=== PATIENT | female | born 1995 | race Caucasian/White ===

== ENCOUNTER 2018-12-31 05:29 | Emergency (ER) | payer OTHER ==
[~2018-12-31] VITALS: Ht 170.2 cm; Wt 74.6 kg
[2018-12-31 05:30] VITALS: BP 135/69
[2018-12-31] MEDS ORDERED: PHEN10TA3 PO (05:39)
[2018-12-31] MEDS ORDERED: IBUP1TAB7 PO (05:39)
[2018-12-31] MEDS ORDERED: DEBR6.5S4 OTIC (05:39)
[2018-12-31] MEDS ORDERED: FLON1SPR NARES (06:06)
== END 2018-12-31 06:15 | disposition home or self-care (01) ==
LOC: M ED 05:29
DX: H65.91 Unspecified nonsuppurative otitis media, right ear (principal); J00 Acute nasopharyngitis [common cold]; F17.200 Nicotine dependence, unspecified, uncomplicated; Z91.048 Other nonmedicinal substance allergy status; Z79.899 Other long term (current) drug therapy

== ENCOUNTER → 2022-03-05 | Outpatient (REF) | payer OTHER ==
[~2022-03-05] MED LIST: DEBR6.5S4 OTIC; FLON1SPR NARES; IBUP1TAB7 PO; PHEN10TA3 PO
[2022-03-05 22:50] LABS: AMORPHOUS SEDIMENT SMALL (NEGATIVE); APPEARANCE, URINE CLOUDY (CLEAR); BACTERIA, URINE AUTO NEGATIVE (NEGATIVE); BILIRUBIN, URINE AUTO NEGATIVE (NEGATIVE); BLOOD, URINE BLOOD NEGATIVE (NEGATIVE); COLOR, URINE YELLOW (YELLOW); GLUCOSE, URINE (UA) AUTO NEGATIVE (NEGATIVE); KETONE, URINE AUTO NEGATIVE (NEGATIVE); LEUKOCYTE ESTERASE, URINE AUTO NEGATIVE (NEGATIVE); MUCUS, URINE SMALL (NEGATIVE); NITRITE, URINE AUTO NEGATIVE (NEGATIVE); PROTEIN, URINE AUTO NEGATIVE (NEGATIVE); RBC, URINE AUTO 0 /HPF (0-3); SPECIFIC GRAVITY URINE AUTO 1.012 (1.002-1.035); SQUAMOUS EPITHELIAL CELL UR AU 3 /HPF (0-6); UROBILINOGEN, URINE AUTO 0.2 mg/dL (0.0-2.0); WBC, URINE AUTO 1 /HPF (0-3)
[2022-03-05 23:59] LABS: GC DNA AMPLIFICATION NEGATIVE (NEGATIVE)
== END ==
LOC: M LAB REF 21:56
PROVIDERS: ATTEND Physician Assistant
DX: N89.8 Other specified noninflammatory disorders of vagina (principal); A59.01 Trichomonal vulvovaginitis; R39.9 Unspecified symptoms and signs involving the genitourinary system

== ENCOUNTER → 2022-05-11 | Outpatient (REF) | payer OTHER | LOC: M SFHCWAGY 13:19 | PROVIDERS: ATTEND Specialist | DX: O23.43 Unspecified infection of urinary tract in pregnancy, third trimester (principal); Z3A.00 Weeks of gestation of pregnancy not specified ==

== ENCOUNTER 2022-05-26 15:33 | Emergency (ER) | payer OTHER ==
[~2022-05-26] VITALS: Ht 167.6 cm; Wt 81.8 kg
[2022-05-26] MEDS ORDERED: PRENTAB53 PO (15:44)
[2022-05-26] MEDS ORDERED: CLON-412 (15:44)
[2022-05-26] MEDS ORDERED: FLUO10CA18 (15:44)
[2022-05-26] MEDS ORDERED: PROM12.528 (15:44)
[2022-05-26] MEDS ORDERED: NYST-13 (15:44)
[2022-05-26 17:14] LABS: HEMATOCRIT 35.9 % (36.0-47.0); MEAN CORPUSCULAR HEMOGLOBIN 30.5 pg (27.0-33.0); MEAN CORPUSCULAR HGB CONC 33.4 g/dl (32.0-36.5); MEAN CORPUSCULAR VOLUME 91.3 fl (80.0-96.0); PLATELET COUNT, AUTOMATED 288 10^3/uL (150-450); RED BLOOD COUNT 3.93 10^6/uL (4.00-5.40); WHITE BLOOD COUNT 8.6 10^3/uL (4.0-10.0)
[2022-05-26 18:11] LABS: ACETAMINOPHEN LEVEL < 2.0 UG/ML (10.0-30.0); ALBUMIN 2.5 GM/DL (3.2-5.2); ALT/SGPT 42 U/L (12-78); BILIRUBIN,DIRECT 0.2 MG/DL (0.0-0.2); BILIRUBIN,TOTAL 0.4 MG/DL (0.2-1.0); BLOOD UREA NITROGEN 4 MG/DL (7-18); CALCIUM LEVEL 9.3 MG/DL (8.5-10.1); CARBON DIOXIDE LEVEL 22 MEQ/L (21-32); CHLORIDE LEVEL 106 MEQ/L (98-107); CREATININE FOR GFR 0.42 MG/DL (0.55-1.30); ETHYL ALCOHOL (ETHANOL) 0.004 % (0.000-0.010); GLOMERULAR FILTRATION RATE > 60.0 (>60); GLUCOSE, FASTING 75 MG/DL (70-100); POTASSIUM SERUM 3.9 MEQ/L (3.5-5.1); SALICYLATE LEVEL < 1.7 MG/DL (5.0-30.0); SODIUM LEVEL 135 MEQ/L (136-145); TOTAL PROTEIN 6.5 GM/DL (6.4-8.2)
[2022-05-26] MEDS ORDERED: ANUSOL HC 25MG SUPP PR STA (19:08)
[2022-05-26 19:09] LABS: AMPHETAMINES LEVEL URINE NEGATIVE (NEGATIVE); BARBITURATES URINE NEGATIVE (NEGATIVE); BENZODIAZEPINES URINE NEGATIVE (NEGATIVE); CANNABINOIDS URINE NEGATIVE (NEGATIVE); COCAINE METABOLITE URINE NEGATIVE (NEGATIVE); METHADONE URINE NEGATIVE (NEGATIVE); OPIATES URINE NEGATIVE (NEGATIVE); PHENCYCLIDINE URINE NEGATIVE (NEGATIVE)
[2022-05-26] MEDS ORDERED: ONDANSETRON 4MG ORAL DISINTEGRATING TAB PO ONE (19:10)
[2022-05-26 20:01] VITALS: BP 137/75
[2022-05-26] MEDS ORDERED: ANUS2.5C2 PR (20:37)
== END 2022-05-27 00:53 | disposition home or self-care (01) ==
LOC: M ED 15:33
DX: O21.9 Vomiting of pregnancy, unspecified (principal); O22.43 Hemorrhoids in pregnancy, third trimester; O99.713 Diseases of the skin and subcutaneous tissue complicating pregnancy, third trimester; R21 Rash and other nonspecific skin eruption; Z79.899 Other long term (current) drug therapy; Z3A.34 34 weeks gestation of pregnancy

== ENCOUNTER → 2022-05-27 | Outpatient (CLI) | payer OTHER ==
[~2022-05-27] MED LIST changes: +ANUS2.5C2 PR; +CLON-412; +FLUO10CA18; +NYST-13; +PRENTAB53 PO; +PROM12.528
[2022-05-27 15:57] LABS: HEMATOCRIT 36.4 % (36.0-47.0); HEMOGLOBIN 11.9 g/dl (12.0-15.5); MEAN CORPUSCULAR HEMOGLOBIN 29.8 pg (27.0-33.0); MEAN CORPUSCULAR HGB CONC 32.7 g/dl (32.0-36.5); MEAN CORPUSCULAR VOLUME 91.2 fl (80.0-96.0); PLATELET COUNT, AUTOMATED 329 10^3/uL (150-450); RED BLOOD COUNT 3.99 10^6/uL (4.00-5.40); WHITE BLOOD COUNT 6.4 10^3/uL (4.0-10.0)
[2022-05-27 16:40] LABS: ALBUMIN 2.4 GM/DL (3.2-5.2); ALT/SGPT 40 U/L (12-78); BILIRUBIN,TOTAL 0.6 MG/DL (0.2-1.0); BLOOD UREA NITROGEN 4 MG/DL (7-18); CALCIUM LEVEL 9.5 MG/DL (8.5-10.1); CARBON DIOXIDE LEVEL 24 MEQ/L (21-32); CHLORIDE LEVEL 103 MEQ/L (98-107); CREATININE FOR GFR 0.46 MG/DL (0.55-1.30); GLOMERULAR FILTRATION RATE > 60.0 (>60); GLUCOSE, FASTING 106 MG/DL (70-100); POTASSIUM SERUM 3.8 MEQ/L (3.5-5.1); SODIUM LEVEL 133 MEQ/L (136-145); TOTAL PROTEIN 6.4 GM/DL (6.4-8.2)
[2022-05-27 17:21] LABS: GC DNA AMPLIFICATION NEGATIVE (NEGATIVE)
[2022-05-27 17:54] LABS: HIV 1&2 SCREEN CENTAUR NEGATIVE (NEGATIVE)
== END ==
LOC: M PLALAB 12:32
PROVIDERS: ATTEND Specialist
DX: Z34.03 Encounter for supervision of normal first pregnancy, third trimester (principal)

== ENCOUNTER 2022-06-02 15:29 | Outpatient (CLI) | payer OTHER ==
[~2022-06-02] VITALS: Ht 167.6 cm; Wt 81.1 kg
[~2022-06-02 15:29] MED LIST changes: -BENA25CA4 PO; -BUSP10TA PO; -HYDR-643 PO; -URSO1TAB8 PO; -URSO300C3 PO; -VALT500T PO
[2022-06-02 15:48] VITALS: BP 131/70
[2022-06-02] MEDS ORDERED: VALT500T PO (15:57)
[2022-06-02] MEDS ORDERED: BUSP10TA PO (15:57)
[2022-06-02] MEDS ORDERED: URSO300C3 PO (15:57)
[2022-06-02] MEDS ORDERED: HYDR-643 PO (15:57)
[2022-06-02] MEDS ORDERED: BETAMETHASONE SOLUSPAN 6MG/ML 5ML VIAL (J0702 PER 3MG) IM ONE (16:25)
[2022-06-03] MEDS ORDERED: URSO1TAB8 PO (16:53)
[2022-06-03] MEDS ORDERED: BENA25CA4 PO (16:58)
== END 2022-06-02 16:40 | disposition home or self-care (01) ==
LOC: M LDO 15:29
PROVIDERS: ATTEND Advanced Practice Midwife
DX: O26.613 Liver and biliary tract disorders in pregnancy, third trimester (principal); Z3A.35 35 weeks gestation of pregnancy
CPT/HCPCS: 59025; 76811; 76820; 87081; 96372; G0463; J0702

== ENCOUNTER → 2022-06-02 | Outpatient (CLI) | payer OTHER ==
[~2022-06-02] MED LIST changes: +BENA25CA4 PO; +BUSP10TA PO; +HYDR-643 PO; +URSO1TAB8 PO; +URSO300C3 PO; +VALT500T PO
== END ==
LOC: M WHC 08:56
PROVIDERS: ATTEND Specialist
DX: Z34.03 Encounter for supervision of normal first pregnancy, third trimester (principal); Z3A.35 35 weeks gestation of pregnancy

== ENCOUNTER → 2022-06-02 | Outpatient (REF) | payer OTHER | LOC: M SFHCWAGY 17:07 | PROVIDERS: ATTEND Specialist | DX: Z34.03 Encounter for supervision of normal first pregnancy, third trimester (principal) ==

== ENCOUNTER 2022-06-03 16:27 | Outpatient (CLI) | payer OTHER ==
[~2022-06-03] VITALS: Ht 167.6 cm; Wt 82.4 kg
[~2022-06-03 16:27] MED LIST changes: +BUSP10TA PO; +HYDR-643 PO; +URSO300C3 PO; +VALT500T PO
[2022-06-03] MEDS ORDERED: URSO1TAB8 PO (16:53)
[2022-06-03] MEDS ORDERED: BENA25CA4 PO (16:58)
[2022-06-03] MEDS ORDERED: HOME MED LIST COMPLETE! XX SCH (17:00)
[2022-06-03] MEDS ORDERED: BETAMETHASONE SOLUSPAN 6MG/ML 5ML VIAL (J0702 PER 3MG) IM ONE (17:30)
== END 2022-06-03 17:35 | disposition home or self-care (01) ==
LOC: M LDO 16:27
PROVIDERS: ATTEND Specialist
DX: O26.613 Liver and biliary tract disorders in pregnancy, third trimester (principal); Z3A.35 35 weeks gestation of pregnancy
CPT/HCPCS: 59025; 96372; J0702

== ENCOUNTER 2022-06-06 03:59 | Inpatient (IN) | payer OTHER ==
[2022-06-06] VITALS (9 sets, daily range): BP systolic 129–145; BP diastolic 66–88
[~2022-06-06] VITALS: Ht 167.6 cm; Wt 83.3 kg
[~2022-06-06 03:59] MED LIST changes: +BENA25CA4 PO; +URSO1TAB8 PO
[2022-06-06] MEDS ORDERED: ONDA8TAB8 PO (18:34)
[2022-06-06 18:36] LABS: HEMATOCRIT 35.2 % (36.0-47.0); HEMOGLOBIN 11.6 g/dl (12.0-15.5); PLATELET COUNT, AUTOMATED 373 10^3/uL (150-450); RED BLOOD COUNT 3.87 10^6/uL (4.00-5.40); WHITE BLOOD COUNT 11.7 10^3/uL (4.0-10.0)
[2022-06-06] MEDS ORDERED: OXYTOCIN DRIP 30 UNITS in IV 1 EA IV PRN ×4 (20:10)
[2022-06-06] MEDS ORDERED: LIDOCAINE 1% MDV 20ML VIAL INFIL PRN (20:10)
[2022-06-06] MEDS ORDERED: METHYLERGONOVINE MALEATE 0.2 MG/ML VIAL (J2210) IM PRN (20:10)
[2022-06-06] MEDS ORDERED: TRANEXAMIC ACID INJection 1,000 MG in NS 100 ML IV PRN (20:10)
[2022-06-06] MEDS ORDERED: CARBOPROST TROMETHAMINE 250 MCG/ML AMP IM PRN (20:10)
[2022-06-06] MEDS: miSOPROStol 50MCG 1/2 TABLET PO SCH (20:44)
[2022-06-06] MEDS ORDERED: ONDANSETRON 4MG TAB PO SCH (22:15)
[2022-06-06] MEDS ORDERED: ursodioL 300MG CAP PO SCH (22:25)
[2022-06-06] MEDS ORDERED: LR 1,000 ML IV SCH (22:25)
[2022-06-06] MEDS ORDERED: valACYclovir HCL 500 MG TAB PO SCH (22:25)
[2022-06-06] MEDS ORDERED: OXYTOCIN DRIP 30 UNITS in IV 1 EA IV SCH (22:25)
[2022-06-06] MEDS ORDERED: ONDANSETRON 4MG TAB PO ONE (22:35)
[2022-06-06] MEDS: busPIRone 10 MG TAB PO SCH (23:03)
[2022-06-06] MEDS: valACYclovir HCL 500 MG TAB PO SCH (23:04)
[2022-06-06] MEDS: ursodioL 300MG CAP PO SCH (23:04)
[2022-06-07] VITALS (37 sets, daily range): BP systolic 102–162; BP diastolic 55–87
[2022-06-07] MEDS: miSOPROStol 50MCG 1/2 TABLET PO SCH ×4 (02:11→15:09)
[2022-06-07] MEDS ORDERED: ONDANSETRON 4MG ORAL DISINTEGRATING TAB PO PRN (07:25)
[2022-06-07] MEDS: busPIRone 10 MG TAB PO SCH ×2 (08:10→20:29)
[2022-06-07] MEDS: FLUoxetine 20MG CAP PO SCH (08:10)
[2022-06-07] MEDS: valACYclovir HCL 500 MG TAB PO SCH ×2 (08:11→20:28)
[2022-06-07] MEDS: ursodioL 300MG CAP PO SCH ×3 (08:11→20:29)
[2022-06-07] MEDS: KETOCONAZOLE 2% CREAM TOP SCH ×2 (08:13→20:33)
[2022-06-07] MEDS: diphenhydrAMINE 50MG CAP PO PRN ×2 (12:04→20:30)
[2022-06-07] MEDS ORDERED: OXYTOCIN DRIP 30 UNITS in IV 1 EA IV SCH (19:15)
[2022-06-07] MEDS ORDERED: BUTORPHANOL 2 MG/ML INJ (J0595) IV ONE (22:40)
[2022-06-07] MEDS ORDERED: PROMETHAZINE 25MG/ML 1ML VIAL IV ONE (22:40)
[2022-06-08] MEDS ORDERED: FENTANYL/ROPIVACAINE/NACL BAG 100 ML EPIDURAL SCH ×2 (01:00)
[2022-06-08] MEDS ORDERED: diphenhydrAMINE 50MG/ML VIAL (J1200) IV PRN (01:00)
[2022-06-08] MEDS ORDERED: EPIDURAL/PCA KEYS XX PRN (01:00)
[2022-06-08] MEDS ORDERED: LR 500 ML IV PRN (01:00)
[2022-06-08] MEDS ORDERED: NALOXONE INJ 0.4MG/1ML VIAL (J2310 PER 1MG) IV PRN (01:00)
[2022-06-08] MEDS ORDERED: ONDANSETRON 4MG 2ML VIAL IV PRN (01:00)
[2022-06-08] MEDS ORDERED: ePHEDrine SULFATE 25 MG/5 ML(5MG/ML) SYRINGE IVP PRN (01:00)
[2022-06-08] MEDS ORDERED: DIBUCAINE 1% OINTMENT 30GM TOP PRN (02:00)
[2022-06-08] MEDS ORDERED: METHYLERGONOVINE MALEATE 0.2 MG TAB PO PRN (02:00)
[2022-06-08] MEDS ORDERED: DOCUSATE SODIUM 100MG CAPSULE PO PRN (02:00)
[2022-06-08] MEDS ORDERED: RHOGAM 300 MCG (1500 IU) INJ (J2790) IM SCH (02:00)
[2022-06-08 04:07] VITALS: BP 114/57
[2022-06-08] MEDS: ACETAMINOPHEN 500 MG TAB PO PRN ×2 (05:37→20:40)
[2022-06-08 06:00] VITALS: BP 119/57
[2022-06-08] MEDS: busPIRone 10 MG TAB PO SCH ×2 (07:54→20:30)
[2022-06-08] MEDS: ursodioL 300MG CAP PO SCH ×2 (07:54→16:48)
[2022-06-08] MEDS: PRENATAL VITAMINS CHEWABLE TABLET PO SCH (07:54)
[2022-06-08] MEDS: FLUoxetine 20MG CAP PO SCH (07:54)
[2022-06-08 18:00] VITALS: BP 124/71
[2022-06-08] MEDS: IBUPROFEN 600MG TAB PO PRN (22:24)
[2022-06-09] MEDS: IBUPROFEN 600MG TAB PO PRN ×2 (05:43→20:03)
[2022-06-09] MEDS: ACETAMINOPHEN 500 MG TAB PO PRN (05:44)
[2022-06-09 06:00] VITALS: BP 114/71
[2022-06-09 08:28] LABS: HEMATOCRIT 33.2 % (36.0-47.0); MEAN CORPUSCULAR HGB CONC 33.1 g/dl (32.0-36.5); MEAN CORPUSCULAR VOLUME 93.5 fl (80.0-96.0); PLATELET COUNT, AUTOMATED 312 10^3/uL (150-450); RED BLOOD COUNT 3.55 10^6/uL (4.00-5.40); WHITE BLOOD COUNT 12.6 10^3/uL (4.0-10.0)
[2022-06-09] MEDS: FLUoxetine 20MG CAP PO SCH (09:22)
[2022-06-09] MEDS: PRENATAL VITAMINS CHEWABLE TABLET PO SCH (09:22)
[2022-06-09] MEDS: busPIRone 10 MG TAB PO SCH ×2 (09:22→20:02)
[2022-06-09 18:00] VITALS: BP 132/86
[2022-06-10 06:01] VITALS: BP 109/56
[2022-06-10] MEDS: FLUoxetine 20MG CAP PO SCH (08:37)
[2022-06-10] MEDS: busPIRone 10 MG TAB PO SCH (08:37)
[2022-06-10] MEDS: PRENATAL VITAMINS CHEWABLE TABLET PO SCH (08:38)
[2022-06-10] MEDS ORDERED: MEASLES,MUMPS,RUBELLA VACCINE INJ (MMR-II) (90707) SC.IMMUN ONE (09:00)
== END 2022-06-10 12:50 | disposition home or self-care (01) | DRG 805 ==
LOC: M LDI 17:59 → M OBS 06-08 04:06
PROVIDERS: ADMIT Obstetrics & Gynecology; ATTEND Obstetrics & Gynecology
PROC: 3E0P7GC Introduction of Other Therapeutic Substance into Female Reproductive, Via Natural or Artificial Opening (ICD-10-PCS; 2022-06-06)
PROC: 10E0XZZ Delivery of Products of Conception, External Approach (ICD-10-PCS; principal; 2022-06-08)
DX: O26.62 Liver and biliary tract disorders in childbirth (principal); Z37.0 Single live birth; K83.1 Obstruction of bile duct; Z3A.36 36 weeks gestation of pregnancy

== ENCOUNTER → 2022-10-08 | Outpatient (REF) | payer OTHER ==
[~2022-10-08] MED LIST changes: +ONDA8TAB8 PO
== END ==
LOC: M PLALAB 16:10
PROVIDERS: ATTEND Nurse Practitioner Family
DX: Z12.4 Encounter for screening for malignant neoplasm of cervix (principal); A60.00 Herpesviral infection of urogenital system, unspecified
CPT/HCPCS: 87252; 87624; G0123

== ENCOUNTER → 2023-02-11 | Outpatient (CLI) | payer OTHER ==
[2023-02-11 16:47] LABS: HEMATOCRIT 43.7 % (36.0-47.0); HEMOGLOBIN 14.3 g/dl (12.0-15.5); MEAN CORPUSCULAR HEMOGLOBIN 29.4 pg (27.0-33.0); MEAN CORPUSCULAR HGB CONC 32.7 g/dl (32.0-36.5); MEAN CORPUSCULAR VOLUME 89.7 fl (80.0-96.0); PLATELET COUNT, AUTOMATED 365 10^3/uL (150-450); RED BLOOD COUNT 4.87 10^6/uL (4.00-5.40); WHITE BLOOD COUNT 11.1 10^3/uL (4.0-10.0)
[2023-02-11 17:51] LABS: HIV 1&2 SCREEN NEGATIVE (NEGATIVE)
[2023-02-11 19:42] LABS: GC DNA AMPLIFICATION NEGATIVE (NEGATIVE)
== END ==
LOC: M PLALAB 14:37
PROVIDERS: ATTEND Advanced Practice Midwife
DX: Z34.91 Encounter for supervision of normal pregnancy, unspecified, first trimester (principal)

== ENCOUNTER → 2023-03-07 | Outpatient (CLI) | payer OTHER | LOC: M PLALAB 11:06 | PROVIDERS: ATTEND Advanced Practice Midwife | DX: Z34.81 Encounter for supervision of other normal pregnancy, first trimester (principal) ==

== ENCOUNTER → 2023-03-16 | Outpatient (REF) | payer OTHER | LOC: M SFHCWAGY 12:54 | PROVIDERS: ATTEND Obstetrics & Gynecology | DX: R82.90 Unspecified abnormal findings in urine (principal) ==

== ENCOUNTER → 2023-04-26 | Outpatient (CLI) | payer OTHER | LOC: M WHC 10:05 | PROVIDERS: ATTEND Obstetrics & Gynecology | DX: Z34.92 Encounter for supervision of normal pregnancy, unspecified, second trimester (principal); Z3A.19 19 weeks gestation of pregnancy ==

== ENCOUNTER → 2023-05-26 | Outpatient (CLI) | payer OTHER ==
[2023-05-26 14:36] LABS: HEMATOCRIT 37.5 % (36.0-47.0); HEMOGLOBIN 12.6 g/dl (12.0-15.5); MEAN CORPUSCULAR HEMOGLOBIN 30.7 pg (27.0-33.0); MEAN CORPUSCULAR HGB CONC 33.6 g/dl (32.0-36.5); MEAN CORPUSCULAR VOLUME 91.2 fl (80.0-96.0); PLATELET COUNT, AUTOMATED 330 10^3/uL (150-450); RED BLOOD COUNT 4.11 10^6/uL (4.00-5.40); WHITE BLOOD COUNT 11.7 10^3/uL (4.0-10.0)
== END ==
LOC: M PLALAB 11:06
PROVIDERS: ATTEND Advanced Practice Midwife
DX: Z34.82 Encounter for supervision of other normal pregnancy, second trimester (principal)

== ENCOUNTER → 2023-05-26 | Outpatient (CLI) | payer OTHER | LOC: M WHC 06:53 | PROVIDERS: ATTEND Advanced Practice Midwife | DX: Z34.92 Encounter for supervision of normal pregnancy, unspecified, second trimester (principal) ==

== ENCOUNTER → 2023-06-07 | Outpatient (REF) | LOC: M LAB 15:54 | PROVIDERS: ATTEND Nurse Practitioner Adult Health | DX: Z00.00 Encounter for general adult medical examination without abnormal findings (principal) ==

== ENCOUNTER → 2023-07-06 | Outpatient (REF) | payer OTHER ==
[2023-07-07 14:17] LABS: GC DNA AMPLIFICATION NEGATIVE (NEGATIVE)
== END ==
LOC: M SFHCWAGY 10:11
PROVIDERS: ATTEND Advanced Practice Midwife
DX: O26.899 Other specified pregnancy related conditions, unspecified trimester (principal); Z79.899 Other long term (current) drug therapy

== ENCOUNTER → 2023-08-24 | Outpatient (CLI) | payer OTHER ==
[2023-08-24 14:16] LABS: HEMATOCRIT 37.8 % (36.0-47.0); HEMOGLOBIN 12.5 g/dl (12.0-15.5); MEAN CORPUSCULAR HEMOGLOBIN 30.1 pg (27.0-33.0); MEAN CORPUSCULAR HGB CONC 33.1 g/dl (32.0-36.5); MEAN CORPUSCULAR VOLUME 91.1 fl (80.0-96.0); PLATELET COUNT, AUTOMATED 356 10^3/uL (150-450); RED BLOOD COUNT 4.15 10^6/uL (4.00-5.40); WHITE BLOOD COUNT 10.3 10^3/uL (4.0-10.0)
[2023-08-24 14:33] LABS: TOTAL PROTEIN,RANDOM URINE 17.7 MG/DL (0.0-14.0)
[2023-08-24 14:37] LABS: URIC ACID 3.1 MG/DL (3.1-7.8)
[2023-08-24 14:38] LABS: CREATININE,RANDOM URINE 72.2 MG/DL
[2023-08-24 14:39] LABS: LDH LACTATE DEHYDROGENASE 166 U/L (120-246)
[2023-08-24 14:40] LABS: ALBUMIN 2.6 G/DL (3.2-5.2); ALKALINE PHOSPHATASE 141 U/L (46-116); ALT/SGPT 27 U/L (7.0-40); AST/SGOT 22 U/L (<34); BILIRUBIN,DIRECT < 0.1 MG/DL (<0.4); BILIRUBIN,TOTAL 0.2 MG/DL (0.3-1.2); CREATININE FOR GFR 0.45 MG/DL (0.55-1.30); GLOMERULAR FILTRATION RATE > 60.0 (>60)
== END ==
LOC: M PLALAB 08:51
PROVIDERS: ATTEND Specialist
DX: Z34.83 Encounter for supervision of other normal pregnancy, third trimester (principal)

== ENCOUNTER 2023-09-17 01:57 | Inpatient (IN) | payer OTHER ==
[2023-09-17] VITALS (7 sets, daily range): BP systolic 106–143; BP diastolic 60–76; O2SAT 96–99
[~2023-09-17] VITALS: Ht 170.2 cm; Wt 98.8 kg
[2023-09-17] MEDS ORDERED: LACTATED RINGER'S 1000 ML IV STA (02:36)
[2023-09-17] MEDS ORDERED: OXYTOCIN DRIP 30 UNITS in IV 1 EA IV PRN (02:40)
[2023-09-17] MEDS ORDERED: METHYLERGONOVINE MALEATE 0.2MG/ML 1ML VIAL IM PRN (02:40)
[2023-09-17] MEDS ORDERED: OXYTOCIN INJ 10UNITS/ML 1ML VIAL IM PRN (02:40)
[2023-09-17] MEDS ORDERED: LIDOCAINE 1% MDV 20ML VIAL INFIL PRN (02:40)
[2023-09-17] MEDS ORDERED: TRANEXAMIC ACID INJection 1,000 MG in NS 100 ML IV PRN (02:40)
[2023-09-17] MEDS ORDERED: LR 1,000 ML IV SCH (02:40)
[2023-09-17] MEDS ORDERED: CARBOPROST TROMETHAMINE 250 MCG/ML AMP IM PRN (02:40)
[2023-09-17 03:03] LABS: HEMATOCRIT 39.2 % (36.0-47.0); HEMOGLOBIN 13.2 g/dl (12.0-15.5); MEAN CORPUSCULAR HEMOGLOBIN 29.8 pg (27.0-33.0); MEAN CORPUSCULAR HGB CONC 33.7 g/dl (32.0-36.5); MEAN CORPUSCULAR VOLUME 88.5 fl (80.0-96.0); PLATELET COUNT, AUTOMATED 328 10^3/uL (150-450); RED BLOOD COUNT 4.43 10^6/uL (4.00-5.40); WHITE BLOOD COUNT 13.5 10^3/uL (4.0-10.0)
[2023-09-17] MEDS ORDERED: DIBUCAINE 1% OINTMENT 30GM TOP PRN (04:30)
[2023-09-17] MEDS ORDERED: ANUSOL HC CREAM 30GM TOP PRN (04:30)
[2023-09-17] MEDS ORDERED: ACETAMINOPHEN TAB 650MG DOSE (2X325MG) PO PRN (04:30)
[2023-09-17] MEDS ORDERED: RHOGAM 300MCG (1500IU) INJ IM SCH (04:30)
[2023-09-17] MEDS ORDERED: MOM 30ML SUSPENSION UDC PO PRN (04:30)
[2023-09-17] MEDS ORDERED: IBUPROFEN 600MG TAB PO PRN (04:30)
[2023-09-17] MEDS ORDERED: DOCUSATE SODIUM 100MG CAPSULE PO PRN (04:30)
[2023-09-17] MEDS ORDERED: METHYLERGONOVINE MALEATE 0.2 MG TAB PO PRN (04:30)
[2023-09-17] MEDS: IBUPROFEN 800 MG TAB PO PRN ×2 (04:54→15:28)
[2023-09-17] MEDS: PRENATAL VITAMINS CHEWABLE TABLET PO SCH (07:54)
[2023-09-17] MEDS: ACETAMINOPHEN 500 MG TAB PO PRN ×3 (10:31→23:31)
[2023-09-18] MEDS: IBUPROFEN 800 MG TAB PO PRN ×2 (05:13→08:40)
[2023-09-18 06:00] VITALS: BP 121/73; O2SAT 98
[2023-09-18] MEDS ORDERED: IBUP-1022 PO (08:16)
[2023-09-18] MEDS ORDERED: ACET-683 PO (08:16)
[2023-09-18] MEDS: PRENATAL VITAMINS CHEWABLE TABLET PO SCH (08:41)
[2023-09-19] MEDS ORDERED: MEASLES,MUMPS,RUBELLA VACCINE INJ (MMR-II) SC.IMMUN ONE (09:00)
== END 2023-09-18 14:28 | disposition home or self-care (01) | DRG 807 ==
LOC: M LDO 01:57 → M LDI 02:39 → M OBS 05:42
PROVIDERS: ADMIT Advanced Practice Midwife; ATTEND Advanced Practice Midwife
PROC: 10E0XZZ Delivery of Products of Conception, External Approach (ICD-10-PCS; principal; 2023-09-17)
DX: O98.32 Other infections with a predominantly sexual mode of transmission complicating childbirth (principal); Z37.0 Single live birth; A60.09 Herpesviral infection of other urogenital tract; Z3A.39 39 weeks gestation of pregnancy; O99.344 Other mental disorders complicating childbirth; F32.A Depression, unspecified; F41.9 Anxiety disorder, unspecified; Z79.899 Other long term (current) drug therapy

== ENCOUNTER → 2023-12-28 | Outpatient (CLI) | payer OTHER ==
[~2023-12-28] MED LIST changes: +ACET-683 PO; +ALLE12TA31 PO; +IBUP-1022 PO; +ZYRTTAB8 PO
== END ==
LOC: M EKG 11:19
PROVIDERS: ATTEND Surgery
DX: Z01.818 Encounter for other preprocedural examination (principal)

== ENCOUNTER 2023-12-30 09:12 | Day surgery (SDC) | payer OTHER ==
[~2023-12-30] VITALS: Ht 167.6 cm; Wt 89.2 kg
[~2023-12-30 09:12] MED LIST changes: -ALLE12TA31 PO
[2023-12-30] MEDS ORDERED: ALLE12TA31 PO (10:00)
[2023-12-30] MEDS: CelecoXIB 400 MG CAP PO ONE (10:21)
[2023-12-30] MEDS: LR 1,000 ML IV SCH (10:22)
[2023-12-30] MEDS ORDERED: propofoL 200 MG/20 ML VIAL As Ordered ONE (10:34)
[2023-12-30] MEDS ORDERED: ONDANSETRON 4MG 2ML VIAL As Ordered ONE (10:34)
[2023-12-30] MEDS ORDERED: LIDOCAINE 2% 100MG/5ML SDV (FOR ANES.) As Ordered ONE (10:34)
[2023-12-30] MEDS ORDERED: MIDAZOLAM INJ 2MG/2ML VIAL As Ordered ONE (10:35)
[2023-12-30] MEDS ORDERED: CHLOROPROCAINE PRES. FREE 3% 20ML VIAL As Ordered ONE (11:00)
[2023-12-30] MEDS: ceFAZolin SOD 2 GM in IV 1 EA IV ONE (15:40)
[2023-12-30] MEDS: metroNIDAZOLE 500 MG in IV 1 EA IV ONE (15:58)
[2023-12-30] MEDS ORDERED: fentaNYL 100 MCG/2 ML INJECTION As Ordered ONE (16:22)
[2023-12-30] MEDS ORDERED: ACETAMINOPHEN 1000MG 100ML IV BAG As Ordered ONE (16:22)
[2023-12-30] MEDS ORDERED: KETOROLAC 60MG 2ML VIAL As Ordered ONE (16:25)
[2023-12-30] MEDS ORDERED: ePHEDrine SULFATE 25 MG/5 ML(5MG/ML) SYRINGE As Ordered ONE (16:53)
[2023-12-30] MEDS ORDERED: oxyCODONE 5MG TAB PO PRN (17:15)
[2023-12-30] MEDS ORDERED: fentaNYL 100 MCG/2 ML INJECTION IV PRN (17:15)
[2023-12-30] MEDS ORDERED: ONDANSETRON 4MG 2ML VIAL IV PRN (17:15)
[2023-12-30] MEDS ORDERED: MORPHINE 2 MG/ML 1ML VIAL IV PRN (17:15)
[2023-12-30 18:32] VITALS: BP 119/68; TEMP 97.4; O2SAT 100
[2023-12-30] MEDS ORDERED: NORCO, ANEXSIA 5/325MG TABLET (HYDROcodone/ACETAMINOPHEN) PO PRN (18:50)
[2023-12-30] MEDS ORDERED: KETOROLAC 30 MG/ML 1ML VIAL IV SCH (23:00)
== END 2023-12-30 19:14 | disposition home or self-care (01) ==
LOC: M SDC 09:12
PROVIDERS: ATTEND Surgery
DX: K64.8 Other hemorrhoids (principal); K64.4 Residual hemorrhoidal skin tags; F43.10 Post-traumatic stress disorder, unspecified; Z79.899 Other long term (current) drug therapy
CPT/HCPCS: 46230; 46260; 81025; 88304; C9290; J0131; J0665; J0690; J1100; J1836; J1885; J2250; J2401; J2405; J3010

== ENCOUNTER 2024-03-08 17:30 | Emergency (ER) | payer OTHER ==
[~2024-03-08] VITALS: Ht 167.6 cm; Wt 91.0 kg
[~2024-03-08 17:30] MED LIST changes: +ALLE12TA31 PO; +FLUO-290; -FLUO10CA18; +ONDA-284 PO; -ONDA8TAB8 PO
[2024-03-08] MEDS ORDERED: IBUP-1022 PO (19:56)
[2024-03-08] MEDS ORDERED: METH-1165 PO (19:56)
[2024-03-08 19:58] VITALS: BP 139/71; TEMP 97.6; O2SAT 99
[2024-03-08] MEDS: methocarbamoL 750 MG TAB PO ONE (20:14)
[2024-03-08] MEDS: IBUPROFEN 600MG TAB PO ONE (20:15)
== END 2024-03-08 20:19 | disposition home or self-care (01) ==
LOC: M ED 17:30
DX: S39.012A Strain of muscle, fascia and tendon of lower back, initial encounter (principal); Y92.9 Unspecified place or not applicable; Y93.9 Activity, unspecified; Y99.9 Unspecified external cause status; Z79.1 Long term (current) use of non-steroidal anti-inflammatories (NSAID); Z79.810 Long term (current) use of selective estrogen receptor modulators (SERMs); Z79.899 Other long term (current) drug therapy

== ENCOUNTER → 2024-06-20 | Outpatient (REF) | payer OTHER ==
[~2024-06-20] MED LIST changes: +METH-1165 PO
[2024-06-20 12:59] LABS: URINE PREG TEST NEGATIVE (NEGATIVE)
== END ==
LOC: M LAB REF 12:24
PROVIDERS: ATTEND Physician Assistant
DX: Z32.02 Encounter for pregnancy test, result negative (principal)

== ENCOUNTER → 2024-06-25 | Outpatient (REF) | payer OTHER ==
[2024-06-25 23:34] LABS: URINE PREG TEST NEGATIVE (NEGATIVE)
== END ==
LOC: M LAB REF 18:35
PROVIDERS: ATTEND Physician Assistant Medical
DX: Z32.02 Encounter for pregnancy test, result negative (principal)

== ENCOUNTER → 2024-07-24 | Outpatient (CLI) | payer OTHER ==
[2024-07-24 15:12] LABS: HCG, SERUM QUALITATIVE NEGATIVE (NEGATIVE)
[2024-07-24 15:25] LABS: HEPATITIS B SURFACE ANTIGEN NEGATIVE (NEGATIVE)
[2024-07-24 15:38] LABS: HIV 1&2 SCREEN NEGATIVE (NEGATIVE)
[2024-07-24 15:46] LABS: HEPATITIS C VIRUS ABY INDEX 0.37 INDEX (<0.8)
[2024-07-24 15:47] LABS: HEPATITIS B CORE ANTIBODY IGM NEGATIVE (NEGATIVE)
[2024-07-24 16:38] LABS: Trichomonas vaginalis (AMP) NOT DETECTED (NEGATIVE)
[2024-07-24 17:01] LABS: GC DNA AMPLIFICATION NEGATIVE (NEGATIVE)
== END ==
LOC: M PLALAB 13:18
PROVIDERS: ATTEND Nurse Practitioner Family
DX: Z11.3 Encounter for screening for infections with a predominantly sexual mode of transmission (principal); R10.2 Pelvic and perineal pain; R87.610 Atypical squamous cells of undetermined significance on cytologic smear of cervix (ASC-US); Z11.51 Encounter for screening for human papillomavirus (HPV)

== ENCOUNTER → 2024-11-19 | Outpatient (REF) | payer OTHER ==
[~2024-11-19] MED LIST changes: +AMOX875T PO; +CIPRHCOTIC OTIC; -NYST-13; +NYST0.1C
== END ==
LOC: M SFHCWAGY 12:48
PROVIDERS: ATTEND Nurse Practitioner Family
DX: Z32.02 Encounter for pregnancy test, result negative (principal)

== ENCOUNTER → 2024-12-05 | Outpatient (REF) | payer OTHER ==
[~2024-12-05] MED LIST changes: -AMOX875T PO; -CIPRHCOTIC OTIC; +NYST-13; -NYST0.1C
== END ==
LOC: M SFHCWAGY 16:59
PROVIDERS: ATTEND Nurse Practitioner Family
DX: N89.8 Other specified noninflammatory disorders of vagina (principal)

== ENCOUNTER 2025-01-15 02:41 | Emergency (ER) | payer OTHER ==
[~2025-01-15] VITALS: Ht 170.2 cm; Wt 94.0 kg
[~2025-01-15 02:41] MED LIST changes: -NYST-13; +NYST0.1C
[2025-01-15] MEDS ORDERED: AMOX875T PO (06:34)
[2025-01-15] MEDS: KETOROLAC 30 MG/ML 1ML VIAL IM ONE (06:57)
[2025-01-15] MEDS ORDERED: CIPRHCOTIC OTIC (06:58)
[2025-01-15 07:27] VITALS: BP 133/83; TEMP 97.3; O2SAT 98
[2025-01-15] MEDS ORDERED: IBUP-1022 PO (07:42)
[2025-01-15] MEDS: AMOXICILLIN 500 MG CAP PO ONE (07:56)
== END 2025-01-15 07:59 | disposition home or self-care (01) ==
LOC: M ED 02:41
DX: H66.92 Otitis media, unspecified, left ear (principal); Z79.1 Long term (current) use of non-steroidal anti-inflammatories (NSAID); Z79.2 Long term (current) use of antibiotics; Z79.899 Other long term (current) drug therapy; Z79.810 Long term (current) use of selective estrogen receptor modulators (SERMs)
CPT/HCPCS: 96372; 99283; J1885

== ENCOUNTER → 2025-04-22 | Outpatient (REF) | payer OTHER ==
[~2025-04-22] MED LIST changes: +AMOX875T PO; +CIPRHCOTIC OTIC; +URSO1TAB2 PO; -URSO1TAB8 PO
[2025-04-22 21:32] LABS: URINE PREG TEST NEGATIVE (NEGATIVE)
== END ==
LOC: M LAB REF 21:15
PROVIDERS: ATTEND Physician Assistant Medical
DX: N91.2 Amenorrhea, unspecified (principal)

== ENCOUNTER → 2025-05-10 | Outpatient (REF) | payer OTHER ==
[2025-05-10 17:40] LABS: APPEARANCE, URINE HAZY (CLEAR); BACTERIA, URINE AUTO NEGATIVE (NEGATIVE); BILIRUBIN, URINE AUTO NEGATIVE (NEGATIVE); BLOOD, URINE BLOOD NEGATIVE (NEGATIVE); GLUCOSE, URINE (UA) AUTO NEGATIVE (NEGATIVE); KETONE, URINE AUTO NEGATIVE (NEGATIVE); LEUKOCYTE ESTERASE, URINE AUTO TRACE (NEGATIVE); MUCUS, URINE SMALL (NEGATIVE); NITRITE, URINE AUTO NEGATIVE (NEGATIVE); PROTEIN, URINE AUTO NEGATIVE (NEGATIVE); RBC, URINE AUTO 0 /HPF (0-3); SPECIFIC GRAVITY URINE AUTO 1.021 (1.002-1.035); SQUAMOUS EPITHELIAL CELL UR AU 7 /HPF (0-6); UROBILINOGEN, URINE AUTO 0.2 mg/dL (0.0-2.0); WBC, URINE AUTO 2 /HPF (0-3)
== END ==
LOC: M SMT 16:59
PROVIDERS: ATTEND Nurse Practitioner Family
DX: R39.15 Urgency of urination (principal)

== ENCOUNTER 2025-05-26 07:11 | Emergency (ER) | payer OTHER ==
[~2025-05-26] VITALS: Ht 170.2 cm; Wt 90.8 kg
[~2025-05-26 07:11] MED LIST changes: -IBUP-1022 PO; +IBUP600T42 PO
[2025-05-26 08:55] LABS: HCG, SERUM QUALITATIVE NEGATIVE (NEGATIVE)
[2025-05-26] MEDS ORDERED: BENZ200C70 PO (09:10)
[2025-05-26] MEDS ORDERED: VENTAER INH (09:10)
[2025-05-26 09:17] VITALS: BP 127/77; TEMP 98.7; O2SAT 98
== END 2025-05-26 09:19 | disposition home or self-care (01) ==
LOC: M ED 07:11
DX: R05.9 Cough, unspecified (principal); B34.1 Enterovirus infection, unspecified; F41.9 Anxiety disorder, unspecified; F43.10 Post-traumatic stress disorder, unspecified; Z79.1 Long term (current) use of non-steroidal anti-inflammatories (NSAID); Z79.51 Long term (current) use of inhaled steroids; Z79.2 Long term (current) use of antibiotics; Z79.899 Other long term (current) drug therapy; Z79.810 Long term (current) use of selective estrogen receptor modulators (SERMs)

== ENCOUNTER 2025-09-15 06:07 | Emergency (ER) | payer OTHER ==
[~2025-09-15] VITALS: Ht 170.2 cm; Wt 85.3 kg
[~2025-09-15 06:07] MED LIST changes: +BENZ200C70 PO; +VENTAER INH
[2025-09-15 07:21] LABS: PLATELET COUNT, AUTOMATED 296 10^3/uL (150-450)
[2025-09-15 07:29] LABS: APPEARANCE, URINE HAZY (CLEAR); BACTERIA, URINE AUTO 2+ (NEGATIVE); BILIRUBIN, URINE AUTO NEGATIVE (NEGATIVE); BLOOD, URINE BLOOD NEGATIVE (NEGATIVE); GLUCOSE, URINE (UA) AUTO NEGATIVE (NEGATIVE); KETONE, URINE AUTO TRACE mg/dL (NEGATIVE); LEUKOCYTE ESTERASE, URINE AUTO 1+ (NEGATIVE); MUCUS, URINE SMALL (NEGATIVE); NITRITE, URINE AUTO NEGATIVE (NEGATIVE); PROTEIN, URINE AUTO 1+ mg/dL (NEGATIVE); RBC, URINE AUTO 6 /HPF (0-3); SPECIFIC GRAVITY URINE AUTO 1.020 (1.002-1.035); SQUAMOUS EPITHELIAL CELL UR AU 17 /HPF (0-6); UROBILINOGEN, URINE AUTO 2.0 mg/dL (0.0-2.0); WBC, URINE AUTO 5 /HPF (0-3)
[2025-09-15 07:45] LABS: CALCIUM LEVEL 8.6 MG/DL (8.5-10.1); CARBON DIOXIDE LEVEL 25 MMOL/L (20-31); CHLORIDE LEVEL 103 MMOL/L (98-107); CREATININE FOR GFR 0.51 MG/DL (0.55-1.30); GLOMERULAR FILTRATION RATE > 90.0 (>60); POTASSIUM SERUM 3.4 MMOL/L (3.5-5.1); SODIUM LEVEL 134 MMOL/L (136-145)
[2025-09-15] MEDS ORDERED: ONDA-282 PO (10:00)
[2025-09-15 10:41] VITALS: BP 92/54; TEMP 96.9; O2SAT 99
== END 2025-09-15 10:44 | disposition home or self-care (01) ==
LOC: M ED 06:07
DX: O99.611 Diseases of the digestive system complicating pregnancy, first trimester (principal); A08.4 Viral intestinal infection, unspecified; Z3A.08 8 weeks gestation of pregnancy; F17.290 Nicotine dependence, other tobacco product, uncomplicated; O99.331 Smoking (tobacco) complicating pregnancy, first trimester; Z79.1 Long term (current) use of non-steroidal anti-inflammatories (NSAID); Z79.51 Long term (current) use of inhaled steroids; Z79.2 Long term (current) use of antibiotics; Z79.899 Other long term (current) drug therapy; Z79.810 Long term (current) use of selective estrogen receptor modulators (SERMs)